=== PATIENT | female | born 1965 | race African-American/Black ===

== ENCOUNTER 2016-10-20 11:43 | Emergency (ER) | payer OTHER ==
[~2016-10-20] VITALS: Ht 160 cm; Wt 83.9 kg
[~2016-10-20 11:43] MED LIST: AMOXICILLIN875 MG PO; APAP500; AZITHROMYCIN 2250 MG PO; BACTRIM DS TAB1 EACH PO; CLARITIN10 MG PO; ETODOLAC 400 M400 M1 PO; FLONASE 0.05%50 MCG NASAL; IBUPROFEN 800800 MG PO; NOHOMEMEDICATIONS; NORCO 5-325 TA1 EACH PO; PERCOCET 10-321 EACH PO; PROMETHAZINE-C120 ML PO; XARELTO10 MG PO
[2016-10-20] MEDS ORDERED: NABUMETONE 750750 M1 PO (12:53)
== END 2016-10-20 13:05 | disposition home or self-care (01) ==
LOC: ER 11:43
DX: M13.862 Other specified arthritis, left knee (principal); F10.99 Alcohol use, unspecified with unspecified alcohol-induced disorder; Z90.710 Acquired absence of both cervix and uterus; Z96.651 Presence of right artificial knee joint; Z88.6 Allergy status to analgesic agent